=== PATIENT | male | born 1980 | race Caucasian/White ===

== ENCOUNTER 2016-05-04 10:45 | Emergency (ER) | payer BC, MEDICAID ==
[2016-05-04 12:56] VITALS: BP 116/69
--- NOTE | 2016-05-04 13:07 | UC ---
Respiratory Complaint HPI - HPI Summary HPI Summary: cough x 5 days , nasal congestion, no fever, no chills - History of Current Complaint Chief Complaint: UCRespiratory Stated Complaint: RESPIRATORY COMPLAINT Time Seen by Provider: 05/04/16 12:46 Hx Obtained From: Patient Onset/Duration: Gradual Onset, Lasting Days - 5, Still Present Severity Initially: Moderate Severity Currently: Moderate Character: Cough: Nonproductive Aggravating Factors: Exertion, Deep Breaths Alleviating Factors: Nothing Associated Signs And Symptoms: Positive: URI, Nasal Congestion. Negative: Fever , Chills, Pleuritic Chest Pain, Wheezing, Hemoptysis, Dizziness, Sinus Discomfort - Allergies/Home Medications Allergies/Adverse Reactions: Allergies Allergy/AdvReac Type Severity Reaction Status Date / Time Oxaprozin [From Daypro] Allergy Intermediate SWELLING Verified 05/04/16 12:56 OF JAW AND PAIN WITH SWALLOWING Home Medications: Home Medications Hylan Cold And Mucous 1 dose PO QPM PRN 05/04/16 [History Confirmed 05/04/16] Jason's Honey Cough Med 1 dose PO QPM PRN 05/04/16 [History Confirmed 05/04/16] PMH/Surg Hx/FS Hx/Imm Hx Previously Healthy: Yes - Surgical History Surgical History: Yes Surgery Procedure, Year, and Place: right inrown toenail as child - Family History Known Family History: Positive: None Negative: Diabetes - Social History Alcohol Use: None Substance Use Type: None Smoking Status (MU): Never Smoked Tobacco - Immunization History Most Recent Influenza Vaccination: none Review of Systems Constitutional: Negative Skin: Negative Eyes: Negative ENT: Nasal Discharge Respiratory: Cough Cardiovascular: Negative Gastrointestinal: Negative Genitourinary: Negative All Other Systems Reviewed And Are Negative: Yes Physical Exam Triage Information Reviewed: Yes Appearance: Well-Appearing, No Pain Distress, Well-Nourished Vital Signs: Initial Vital Signs Temp 99.2 F 05/04/16 12:49 Pulse 73 05/04/16 12:49 Resp 20 05/04/16 12:49 BP 116/69 05/04/16 12:49 Pulse Ox 99 05/04/16 12:49 Vital Signs Reviewed: Yes Eyes: Positive: Conjunctiva Clear ENT: Positive: Normal ENT inspection, Hearing grossly normal, Pharynx normal, Nasal congestion, Nasal drainage, TMs normal Neck: Positive: Supple, Nontender, No Lymphadenopathy Respiratory: Positive: Chest non-tender, Lungs clear, Normal breath sounds, No respiratory distress Cardiovascular: Positive: RRR, No Murmur, Pulses Normal UC Diagnostic Evaluation - Laboratory O2 Sat by Pulse Oximetry: 99 Respiratory Course/Dx - Differential Dx/Diagnosis Provider Diagnoses: acute viral bronchitis Discharge - Discharge Plan Condition: Stable Disposition: HOME Prescriptions: Guaifenesin-Codeine [Cheratussin AC] 10 ml PO Q8H PRN #120 ml MDD 30 ML PRN Reason: Cough Patient Education Materials: Acute Bronchitis (ED) Referrals: Alverto Linares MD [Primary Care Provider] - 7 Days Additional Instructions: viral pharyngitis , no need for abx at this time
== END 2016-05-04 13:45 | disposition home or self-care (01) ==
LOC: UCCORT 10:45
DX: J20.9 Acute bronchitis, unspecified (principal); Z88.6 Allergy status to analgesic agent
CPT/HCPCS: 99212; G0463

== ENCOUNTER 2018-11-27 16:16 | Emergency (ER) | payer BC, MEDICAID, OTHER ==
[2018-11-27 16:42] VITALS: BP 112/70
--- NOTE | 2018-11-27 17:06 | UC ---
Hand/Wrist HPI - HPI Summary HPI Summary: Pt presents with c/o right wrist pain that began to today after he caught a cabinet that was falling from wall and he caught it with right hand and "hyper- extended" right wrist. Also, c/o of left heel pain that is worse in the morning and "loosens" throughout the day. - History Of Current Complaint Chief Complaint: UCGeneralIllness Stated Complaint: WC-RT WRIST/LEFT ANKLE INJURY Time Seen by Provider: 11/27/18 16:35 Hx Obtained From: Patient ?: No Onset/Duration: Sudden Onset Severity Initially: Mild Severity Currently: Mild Pain Intensity: 3 Character Of Pain: Dull, Stiffness Aggravating Factor(s): Movement, Internal/External Rotation Alleviating Factor(s): Rest Associated Signs And Symptoms: Positive: Negative Related History: Dominant Hand Right - Risk Factors Compartment Syndrome Risk Factors: Pain - Allergies/Home Medications Allergies/Adverse Reactions: Allergies Allergy/AdvReac Type Severity Reaction Status Date / Time oxaprozin Allergy See Comment Verified 11/27/18 16:36 Home Medications: Home Medications NK [No Home Medications Reported] 11/27/18 [History Confirmed 11/27/18] PMH/Surg Hx/FS Hx/Imm Hx Previously Healthy: Yes - Surgical History Surgical History: Yes Surgery Procedure, Year, and Place: right ingrown toenail as child - Family History Known Family History: Positive: None Negative: Diabetes - Social History Occupation: Employed Full-time Lives: With Family Alcohol Use: None Substance Use Type: None Smoking Status (MU): Never Smoked Tobacco Have You Smoked in the Last Year: No - Immunization History Most Recent Influenza Vaccination: none Vaccination Up to Date: No Review of Systems All Other Systems Reviewed And Are Negative: Yes Constitutional: Positive: Negative Skin: Positive: Negative Eyes: Positive: Negative ENT: Positive: Negative Respiratory: Positive: Negative Cardiovascular: Positive: Negative Gastrointestinal: Positive: Negative Genitourinary: Positive: Negative Motor: Positive: Negative Neurovascular: Positive: Negative Musculoskeletal: Positive: Myalgia - right wrist, left ankle Neurological: Positive: Negative Psychological: Positive: Negative Is Patient Immunocompromised?: No Physical Exam Triage Information Reviewed: Yes Appearance: Well-Appearing Vital Signs: Initial Vital Signs Temp 98.2 F 11/27/18 16:36 Pulse 71 11/27/18 16:36 Resp 16 11/27/18 16:36 BP 112/70 11/27/18 16:36 Pulse Ox 99 11/27/18 16:36 Vital Signs Reviewed: Yes Eye Exam: Normal ENT: Positive: Hearing grossly normal Dental Exam: Normal Neck exam: Normal Respiratory: Positive: No respiratory distress Musculoskeletal: Positive: Strength Intact, ROM Intact Neurological Exam: Normal Psychological Exam: Normal Skin Exam: Normal Diagnostics - Radiology No standard instances Radiology Interpretation Completed By: Radiologist - IMPRESSION: NO EVIDENCE FOR FRACTURE. IF THE PATIENT'S SYMPTOMS PERSIST RECOMMEND FOLLOW-UP IMAGING. Hand/Wrist Course/Dx - Differential Dx/Diagnosis Differential Diagnosis/HQI/PQRI: Sprain, Strain, Tendonitis Provider Diagnosis: Right wrist sprain, Left ankle tendonitis Discharge - Sign-Out/Discharge Documenting (check all that apply): Patient Departure All imaging exams completed and their final reports reviewed: Yes - Discharge Plan Condition: Stable Disposition: HOME Patient Education Materials: Achilles Tendinitis (ED), Ice Pack Application (ED ), Wrist Sprain (ED), Safe Use of NSAIDs (ED) Referrals: Jailene Woodard MD [Primary Care Provider] - Kai Barreto MD [Medical Doctor] - If Needed - Billing Disposition and Condition Condition: STABLE Disposition: Home
== END 2018-11-27 17:51 | disposition home or self-care (01) ==
LOC: UCCORT 16:16
DX: S63.501A Unspecified sprain of right wrist, initial encounter (principal); X50.0XXA Overexertion from strenuous movement or load, initial encounter; Y93.89 Activity, other specified; Y92.9 Unspecified place or not applicable; M77.9 Enthesopathy, unspecified
CPT/HCPCS: 99211; G0463